=== PATIENT | female | born 1995 | race Caucasian/White ===

== ENCOUNTER → 2020-05-29 09:05 | Outpatient (BNVA) | payer OTHER, SELFPAY | PROVIDERS: Family Provider Family Medicine; Visit Provider Nurse Practitioner Family | DX: K50.90 Crohn's disease, unspecified, without complications (principal); Z30.9 Encounter for contraceptive management, unspecified; K21.9 Gastro-esophageal reflux disease without esophagitis; K50.00 Crohn's disease of small intestine without complications; E53.8 Deficiency of other specified B group vitamins; Z30.42 Encounter for surveillance of injectable contraceptive | CPT/HCPCS: 81025 ==

== ENCOUNTER → 2020-06-12 15:00 | Outpatient (BNVA) | payer OTHER, SELFPAY | PROVIDERS: Family Provider Family Medicine; Visit Provider Internal Medicine | DX: E53.8 Deficiency of other specified B group vitamins (principal); K90.9 Intestinal malabsorption, unspecified; E11.9 Type 2 diabetes mellitus without complications; K50.00 Crohn's disease of small intestine without complications | CPT/HCPCS: 80053; 82607; 82746; 83550; 84443; 85025; 85651; 86140 ==

== ENCOUNTER → 2020-07-02 19:36 | Outpatient (BNVA) | payer OTHER, SELFPAY | PROVIDERS: Family Provider Family Medicine; Visit Provider Nurse Practitioner Family | DX: Z11.59 Encounter for screening for other viral diseases (principal); J06.9 Acute upper respiratory infection, unspecified | CPT/HCPCS: 87635 ==

== ENCOUNTER → 2020-07-13 11:19 | Day surgery (SDC) | payer OTHER, SELFPAY ==
[2020-07-13 11:55] VITALS: BP 169/99; PULSE 97; RESP 18; TEMP 36.7; O2SAT 98
[2020-07-13] MEDS: vedolizumab 300 MG in sodium chloride 0.9% 250 ML 500 MG IV (12:13)
== END ==
LOC: OPS 11:23
PROVIDERS: PCP Nurse Practitioner Family; Visit Provider Internal Medicine
DX: K50.00 Crohn's disease of small intestine without complications (principal)
CPT/HCPCS: 96365; J3380; J7050

== ENCOUNTER → 2020-12-01 14:01 | Outpatient (BNVA) | payer BC, SELFPAY | PROVIDERS: PCP Nurse Practitioner Family; Visit Provider Emergency Medicine | DX: J06.9 Acute upper respiratory infection, unspecified (principal); Z11.59 Encounter for screening for other viral diseases; Z20.828 Contact with and (suspected) exposure to other viral communicable diseases | CPT/HCPCS: 87400; 87635 ==

== ENCOUNTER → 2022-01-08 09:02 | Outpatient (BNVA) | payer MEDICAID, SELFPAY | PROVIDERS: PCP Nurse Practitioner Family; Visit Provider Nurse Practitioner Family | DX: Z79.899 Other long term (current) drug therapy (principal); R53.83 Other fatigue; E78.5 Hyperlipidemia, unspecified; K50.00 Crohn's disease of small intestine without complications | CPT/HCPCS: 80053; 80061; 84439; 84443; 84481; 85025 ==

== ENCOUNTER → 2023-09-29 10:32 | Outpatient (BNVA) | payer BC, MEDICAID, SELFPAY | PROVIDERS: PCP Nurse Practitioner Family; Visit Provider Nurse Practitioner Family | DX: E53.8 Deficiency of other specified B group vitamins (principal); K50.90 Crohn's disease, unspecified, without complications | CPT/HCPCS: 80053; 82607; 85025 ==

== ENCOUNTER → 2023-12-02 13:47 | Outpatient (BNVA) | payer BC, MEDICAID, SELFPAY | PROVIDERS: PCP Nurse Practitioner Family; Visit Provider Nurse Practitioner Family | DX: E53.8 Deficiency of other specified B group vitamins (principal); I73.00 Raynaud's syndrome without gangrene; R53.83 Other fatigue; I10 Essential (primary) hypertension | CPT/HCPCS: 80053; 82607; 84439; 84443; 84481; 85025; 85651; 86038; 86431 ==

== ENCOUNTER 2023-12-08 15:18 | Outpatient (CLI) | payer BC, MEDICAID, SELFPAY ==
--- NOTE | 2023-12-08 15:27 | XR_ITS ---
WS: [id number] EXAM: 4 view lumbar spine. INDICATION: Leg numbness. DATE: December 08, 2023. COMPARISON: None. FINDINGS: There is limited curvature of the thoracolumbar junction to the right. This may be positional. The bone density and the pedicles are intact. There is no anterior wedging. There is no compression. There is mild narrowing of the L1-2 disc space with small posterior and anterior osteophytes. Across flexion and extension there is no significant subluxation. IMPRESSION: Dominant L1-2 degenerative changes are present. There is no compression or subluxation.
== END 2023-12-08 15:19 | disposition home or self-care (01) ==
LOC: RAD 15:21
PROVIDERS: PCP Nurse Practitioner Family; Visit Provider Nurse Practitioner Family
DX: M47.816 Spondylosis without myelopathy or radiculopathy, lumbar region (principal); R20.0 Anesthesia of skin
CPT/HCPCS: 72110

== ENCOUNTER → 2024-04-05 16:49 | Outpatient (CLI) | payer BC, MEDICAID, SELFPAY ==
--- NOTE | 2024-04-05 16:56 | CTR_ITS ---
PROCEDURE INFORMATION: Exam: CT Lumbar Spine Without Contrast Exam date and time: 04/05/2024 5:10 PM Age: 28 years old Clinical indication: Patient HX: Low back pain and worsening neuropathy in legs and feet x 2 months, HX of crohn s dx; Additional info: Vertebrogenic low back pain TECHNIQUE: Imaging protocol: Computed tomography of the lumbar spine without contrast. Radiation optimization: All CT scans at this facility use at least one of these dose optimization techniques: automated exposure control; mA and/or kV adjustment per patient size (includes targeted exams where dose is matched to clinical indication); or iterative reconstruction. COMPARISON: CR XR lumbar spine min 4V [id number] 12/08/2023 3:30 PM RADIATION DOSE METRICS: Total DLP (mGy-cm): 486.35 FINDINGS: Bones/joints: Trace levocurvature of the lumbar spine is present. The normal lumbar lordosis is maintained, without listhesis. No fracture identified. Vertebral body heights are well preserved. There are mild degenerative changes, manifested by intervertebral disc space narrowing, endplate osteophytes and facet joint arthrosis, resulting in mild central spinal canal stenosis at L1-L2, L2-L3 and L4-L5. No significant neural foraminal narrowing. Kidneys and ureters: There is a 0.3 cm nonobstructing stone in the right upper kidney. Soft tissues: Unremarkable. CT/CT lumbar spine wo con* [id number] IMPRESSION: 1. No acute findings. 2. Degenerative changes of the lumbar spine, most prominent at L1-L2.
== END | disposition home or self-care (01) ==
LOC: RAD 16:50
PROVIDERS: PCP Nurse Practitioner Family; Visit Provider Nurse Practitioner
DX: M51.36 Other intervertebral disc degeneration, lumbar region (principal); N20.0 Calculus of kidney
CPT/HCPCS: 72131

== ENCOUNTER → 2024-05-18 10:51 | Outpatient (BNVA) | payer BC, MEDICAID, SELFPAY | PROVIDERS: PCP Nurse Practitioner Family; Visit Provider Nurse Practitioner Family | DX: R03.0 Elevated blood-pressure reading, without diagnosis of hypertension (principal) | CPT/HCPCS: 80053; 80061; 85025 ==